=== PATIENT | male | born 1990 | race African-American/Black ===

== ENCOUNTER 2023-08-27 16:00 | Emergency (ER) | payer MEDICAID ==
[~2023-08-27] VITALS: Ht 172.7 cm; Wt 77.1 kg
[2023-08-27] MEDS ORDERED: IV NORMAL SALINE 500 ML BAG IV ONE (16:45)
[2023-08-27 17:01] LABS: BASOPHILS # (AUTO) 0.1 K/UL (0.0-0.2); BASOPHILS % (AUTO) 1.5 % (0.0-2.0); EOSINOPHILS # (AUTO) 0.1 K/uL (0.0-0.7); EOSINOPHILS % (AUTO) 1.5 % (0.0-7.0); HEMATOCRIT 50.6 % (36.7-47.1); HEMOGLOBIN 16.5 g/dL (12.5-16.3); LYMPHOCYTES # (AUTO) 1.1 K/uL (0.8-4.8); LYMPHOCYTES % (AUTO) 19.4 % (20.5-51.5); MEAN CORPUSCULAR HEMOGLOBIN 28.7 uug (23.8-33.4); MEAN CORPUSCULAR HGB CONC 33 g/dL (32.5-36.3); MONOCYTES # (AUTO) 0.6 K/uL (0.1-1.30); MONOCYTES % (AUTO) 11.1 % (0.0-11.0); NEUTROPHILS # (AUTO) 3.8 K/uL (1.8-8.9); NEUTROPHILS % (AUTO) 66.5 % (38.5-71.5); PLATELET COUNT (AUTO) 270 K/uL (152-348); RED BLOOD CELL COUNT(AUTO) 5.76 MIL/uL (4.06-5.63); RED CELL DISTRIBUTION WIDTH 14.2 % (12.1-16.2); WHITE BLOOD COUNT (AUTO) 5.7 K/uL (3.6-10.2)
[2023-08-27 17:18] LABS: CALCIUM 8.3 mg/dL (8.5-10.1); DIFFERENTIAL COMMENT 1
[2023-08-27 19:43] VITALS: BP 110/59; O2SAT 100
== END 2023-08-27 19:10 | disposition home or self-care (01) ==
LOC: ER 16:03
DX: R55 Syncope and collapse (principal); E86.1 Hypovolemia; F17.210 Nicotine dependence, cigarettes, uncomplicated; Z71.6 Tobacco abuse counseling
CPT/HCPCS: 99284; 96360; 99406; 80048; 85025; 36415; 93005; J7040 ×2; A4606; A4663

== ENCOUNTER 2025-08-14 12:25 | Emergency (ER) | payer MEDICAID, OTHER ==
[~2025-08-14] VITALS: Ht 175.3 cm; Wt 65.8 kg
[2025-08-14 12:28] VITALS: BP 117/75
[2025-08-14] MEDS: LIDOCAINE HCL 1% 20 ML VIAL IJ ONE (16:00)
[2025-08-14] MEDS ORDERED: LIDOCAINE HCL 1% 20 ML VIAL ONE (16:02)
[2025-08-14] MEDS: LIDOCAINE 1%-EPI 1:100,000 20 ML VIAL IJ ONE (16:21)
[2025-08-14] MEDS ORDERED: CEPH500C2 PO (16:41)
[2025-08-14 17:21] VITALS: BP 112/60; O2SAT 96
== END 2025-08-14 17:23 | disposition home or self-care (01) ==
LOC: ER 12:25
DX: S01.511A Laceration without foreign body of lip, initial encounter (principal); Y04.0XXA Assault by unarmed brawl or fight, initial encounter; Y93.89 Activity, other specified; Y92.89 Other specified places as the place of occurrence of the external cause; Y99.9 Unspecified external cause status
CPT/HCPCS: 12011; 73130; 99283; J3490; A4606; A4663